=== PATIENT | female | born 1950 | race Caucasian/White ===

== ENCOUNTER → 2016-05-21 | Outpatient (CLI) | payer MEDICARE, OTHER ==
[~2016-05-21] MED LIST: BACITRACIN15 G1 TP; CALTRATE-600 W600 MG PO; CO Q-1050 MG PO; CULTURELLE1 CAP PO; DITROPAN-DPS5 MG PO; ICAPS TABLET1 EACH PO; L-LYSINE500 M1 PO; NORCO 5-325 TA1 EACH PO; PRAVACHOL10 MG PO; PRILOSEC DPS20 MG PO; SYNTHROID DPS0.1 MG PO; TYLENOL EXTRA500 M1 PO; VITAMIN D-32000 UNIT PO; ZESTRIL DPS5 MG PO
== END | disposition home or self-care (01) ==
LOC: PTH.S 07:38
DX: Z01.818 Encounter for other preprocedural examination (principal); Z98.890 Other specified postprocedural states; Z90.49 Acquired absence of other specified parts of digestive tract; Z90.710 Acquired absence of both cervix and uterus; Z79.899 Other long term (current) drug therapy

== ENCOUNTER 2016-05-30 05:38 | Observation (INO) | payer MEDICARE, OTHER ==
[~2016-05-30] VITALS: Ht 157.5 cm; Wt 96.4 kg
--- NOTE | ~2016-05-30 | FD ---
ADMIT: 05/30/2016 RM/LOC: 518 [facility] MR#: [id number] [address] [address] ELDA ESCOBEDO [address] [place] [id number] Final Diagnosis SEX: F AGE: 66 : 1950 ADMISSION DATE: 05/30/2016 DISCHARGE DATE: 06/01/2016 FINAL DIAGNOSIS: Papillary thyroid carcinoma, T1a N0 MX with bilateral thyroid nodules, largest 0.9 cm. Jan Roger MD/ vdg JOB #: [id number] CC: Jan Roger MD, Attending Physician Nora Carrizales MD, Family Physician
[2016-06-02] MEDS ORDERED: PRILOSEC DPS20 MG PO (09:12)
[2016-06-02] MEDS ORDERED: CO Q-1050 MG PO (09:13)
[2016-06-02] MEDS ORDERED: PRAVACHOL10 MG PO (09:13)
[2016-06-02] MEDS ORDERED: L-LYSINE500 M1 PO (09:13)
[2016-06-02] MEDS ORDERED: ICAPS TABLET1 EACH PO (09:13)
[2016-06-02] MEDS ORDERED: DITROPAN-DPS5 MG PO (09:13)
[2016-06-02] MEDS ORDERED: ZESTRIL DPS5 MG PO (09:13)
[2016-06-02] MEDS ORDERED: TYLENOL EXTRA500 M1 PO (09:14)
[2016-06-02] MEDS ORDERED: NORCO 5-325 TA1 EACH PO (09:14)
[2016-06-02] MEDS ORDERED: VITAMIN D-32000 UNIT PO (09:14)
[2016-06-02] MEDS ORDERED: CULTURELLE1 CAP PO (09:14)
[2016-06-02] MEDS ORDERED: SYNTHROID DPS0.1 MG PO (09:15)
[2016-06-02] MEDS ORDERED: BACITRACIN15 G1 TP (09:15)
[2016-06-02] MEDS ORDERED: CALTRATE-600 W600 MG PO (09:15)
--- NOTE | 2016-06-04 09:33 | OR ---
ADMIT: 05/30/2016 RM/LOC: 518 [facility] MR#: [id number] [address] [address] ELDA ESCOBEDO [address] [place] [id number] Operative/Delivery Room Report SEX: F AGE: 66 : 1950 SURGERY DATE: 05/30/2016 SURGEON: Jan Roger MD PREOPERATIVE DIAGNOSIS: Right thyroid nodule, suspicious of papillary thyroid carcinoma. POSTOP DIAGNOSIS: Papillary thyroid carcinoma, right thyroid nodule. OPERATIONS: Right thyroid lobectomy with frozen section. Left thyroid lobectomy to complete total thyroidectomy. ANESTHESIA: General endotracheal. BLOOD LOSS: 60 mL. COMPLICATIONS: None. DESCRIPTION OF PROCEDURE: With the patient in supine position, general oral endotracheal anesthesia, her eyes were taped. The neck was extended slightly. The anterior neck was prepped with ChloraPrep, allowed 3 minutes to dry. The patient was then draped sterilely. An incision made following natural skin crease through skin and subcutaneous tissue, and platysma muscle and skin flaps elevated superiorly and inferiorly exposing the strap muscles. They were in the midline exposing the thyroid isthmus and the right thyroid lobe was then exposed by retraction of the strap muscles laterally and blunt dissection the thyroid capsule from the surrounding tissues. Small vessels were treated by clamping and coagulation. The gland was clamped with a tenaculum and retracted towards midline. Dissection was then continued directly on the thyroid capsule. A firm nodule was present within the mid-to- lower pole, tissue consistent with both the inferior and superior parathyroid glands were identified and preserved during the dissection. Recurrent laryngeal nerve was identified, its identity was confirmed by NIM-2 stimulation and function confirmed intact following lobectomy by NIM-2 stimulation. The inferior and superior thyroid arteries and veins were clamped, divided, and coagulated. The gland was pedicled at Ambrosio's ligament, which was transected and the isthmus was transected with electrocautery. The right lobe was sent for frozen section analysis. This revealed a papillary thyroid carcinoma and a left thyroid lobectomy was then performed in the same ADMIT: 05/30/2016 RM/LOC: 518 [facility] MR#: [id number] [address] [address] ELDA ESCOBEDO [address] [place] [address] Operative/Delivery Room Report SEX: F AGE: 66 : 1950 fashion. There were no palpable or visible abnormalities in the left thyroid lobe. There was no palpable or visible adenopathy in the thyroid region. Tissue consistent with the left parathyroid glands were likewise identified and preserved as was the recurrent laryngeal nerve and its function confirmed intact by NIM-2 stimulation. The wound was irrigated with saline. Hemostasis was assured. A 7 mm Jose-Moreno drain was placed, brought out the left side of strap muscles and incision and the wound was closed in layers with 3-0 chromic catgut to the strap muscles and to the platysmal layer and a running horizontal mattress suture to the skin. The drain was sutured to the skin with silk, and the operation was completed. The patient tolerated the procedure well. She emerged from general anesthesia in the operating room, was transferred to the recovery room in good condition. Jan Roger MD/ jeanine JOB #: [id number] CC: Jan Roger, Attending Physician Nora Carrizales, Family Physician
--- NOTE | 2016-06-06 09:02 | HP ---
ADMIT: 05/30/2016 RM/LOC: [facility] MR#: [id number] [address] [address] ELDA ESCOBEDO [address] [place] [id number] Pre-OP History and Physical SEX: F AGE: 66 : 1950 DATE OF SERVICE: HISTORY OF PRESENT ILLNESS: Ms. Escobedo is 66 years old. She is admitted for right thyroid lobectomy with frozen section. She has a solid nodule in the right thyroid lobe that appears suspicious of papillary thyroid carcinoma by FNA. She is euthyroid, has no past history of thyroid disease. There is family history of thyroid disease in the family with the patient's mother but non-cancerous. The rationale for the lobectomy with frozen section, potential risks including risks of anesthesia, bleeding, wound infection, recurrent laryngeal nerve, and parathyroid dysfunction have been discussed, of which she is in acceptance of and she is admitted at this time for general anesthesia. If malignancy confirmed in the right lobe, total thyroidectomy will be performed. MEDICATIONS: Prior to admission: 1. Omeprazole. 2. Pravastatin. 3. Oxybutynin. 4. Lisinopril. 5. Lysine. 6. CoQ10. 7. Multiple vitamins. 8. Vitamin D3. ALLERGIES: SULFA, CEFTIN, LEVOFLOXACIN, KEFLEX. PAST MEDICAL HISTORY: Tonsillectomy, appendectomy, hysterectomy, and rotator cuff surgery. REVIEW OF SYSTEMS: Positive for asthma and hypertension. Does not have GI, , hematologic, or neurologic disorders. SOCIAL HISTORY: Drinks alcohol occasionally. Caffeine daily in the form of soda. She does not use tobacco. FAMILY HISTORY: No known anesthetic complications or coagulopathies. PHYSICAL EXAMINATION: GENERAL: A 66-year-old. HEENT: Pupils equal. Conjunctivae clear. No proptosis, exophthalmos, or lid retraction. Ears: Canals, TMs, middle ears normal. Nose, mouth, pharynx, ADMIT: 05/30/2016 RM/LOC: [facility] MR#: [id number] [address] [address] ELDA ESCOBEDO [address] [place] [address] Pre-OP History and Physical SEX: F AGE: 66 : 1950 larynx, normal and symmetrical structure and function. NECK: No palpable cervical adenopathy or neck masses. Thyroid: Vague fullness, right thyroid lobe, without distinct mass palpable. LUNGS: Clear. No wheeze. HEART: Rhythm regular. EXTREMITIES: Normal. IMPRESSION: Right thyroid nodule suspicious of papillary thyroid carcinoma by FNA. PLAN: Right thyroid lobectomy with frozen section and possible total thyroidectomy. Jan Roger MD/ jeanine JOB #: [id number] CC: Jan Roger, Attending Physician Nora Carrizales, Family Physician
== END 2016-06-01 12:00 | disposition home or self-care (01) ==
LOC: WOR 05:38 → 5MS 09:33
PROVIDERS: ADMIT Otolaryngology
PROC: 0GTK0ZZ Resection of Thyroid Gland, Open Approach (ICD-10-PCS; principal; 2016-05-30)
DX: C73 Malignant neoplasm of thyroid gland (principal); I10 Essential (primary) hypertension; K21.9 Gastro-esophageal reflux disease without esophagitis; E66.9 Obesity, unspecified; Z79.899 Other long term (current) drug therapy; Z88.2 Allergy status to sulfonamides; Z88.1 Allergy status to other antibiotic agents; Z88.8 Allergy status to other drugs, medicaments and biological substances

== ENCOUNTER → 2016-06-03 | Outpatient (CLI) | payer MEDICARE, OTHER | END | disposition home or self-care (01) | LOC: PTH.S 09:41 | DX: E89.0 Postprocedural hypothyroidism (principal); Z98.890 Other specified postprocedural states ==

== ENCOUNTER → 2016-06-06 | Outpatient (CLI) | payer MEDICARE, OTHER | END | disposition home or self-care (01) | LOC: PTH.S 07:45 | DX: Z09 Encounter for follow-up examination after completed treatment for conditions other than malignant neoplasm (principal); Z98.890 Other specified postprocedural states ==